=== PATIENT | male | born 1970 | race Caucasian/White ===

== ENCOUNTER 2022-08-23 08:26 | Day surgery (SDC) | payer BC ==
[~2022-08-23 08:26] MED LIST: Lactated Ringers 1,000 ML IV SCH
[2022-08-23] MEDS ORDERED: Propofol 200 MG/20 ML SDV ONE (08:32)
[2022-08-23] MEDS ORDERED: Lactated Ringers 1,000 ML IV SCH (10:00)
== END 2022-08-23 10:30 | disposition home or self-care (01) ==
LOC: MW.SDS 08:26
PROVIDERS: ATTEND Surgery
DX: Z12.11 Encounter for screening for malignant neoplasm of colon (principal); K63.5 Polyp of colon; J45.40 Moderate persistent asthma, uncomplicated; G47.33 Obstructive sleep apnea (adult) (pediatric); J45.901 Unspecified asthma with (acute) exacerbation; Z88.1 Allergy status to other antibiotic agents; Z79.899 Other long term (current) drug therapy; Z87.891 Personal history of nicotine dependence
CPT/HCPCS: 45380; J2704; J7120; 00811